=== PATIENT | female | born 1995 | race Hispanic/Latino ===

== ENCOUNTER 2023-09-01 22:17 | Inpatient (IN) | payer BC ==
[~2023-09-01 22:17] MED LIST: Bupivacaine PF 0.5% 30 ML VIAL ONE; ePHEDrine 50 MG/ML VIAL ONE
[2023-09-01] MEDS ORDERED: hydrALAZINE 20 MG/ML VIAL SLOW IVP PRN (22:33)
[2023-09-01] MEDS ORDERED: Ibuprofen 800 MG TAB PO PRN (23:02)
[2023-09-01] MEDS ORDERED: Diphenoxylate HCl/Atropine Tablet PO PRN (23:02)
[2023-09-01] MEDS ORDERED: Promethazine HCl 25 MG/ML VIAL IM PRN (23:02)
[2023-09-01] MEDS ORDERED: Carboprost 250 MCG/ML AMP IM PRN (23:02)
[2023-09-01] MEDS ORDERED: Misoprostol 200 MCG TAB PR PRN (23:02)
[2023-09-01] MEDS ORDERED: Methylergonovine 0.2 MG/ML VIAL IM PRN (23:02)
[2023-09-01] MEDS ORDERED: Ondansetron PF 4 MG/2 ML Vial IVP PRN (23:02)
[2023-09-01] MEDS ORDERED: Tranexamic Acid 1,000 MG/10 ML VIAL IVP PRN (23:02)
[2023-09-01] MEDS ORDERED: fentaNYL 50 mcg/mL 1 mL Vial SLOW IVP PRN (23:02)
[2023-09-01] MEDS ORDERED: Lidocaine 1% (PF) 30 ML VIAL SC PRN (23:02)
[2023-09-01] MEDS ORDERED: Docusate 100 MG CAP PO PRN (23:02)
[2023-09-01] MEDS ORDERED: Butorphanol Tartrate 1 MG/ML VIAL SLOW IVP PRN (23:02)
[2023-09-01] MEDS ORDERED: Acetaminophen 500 MG TAB PO PRN (23:02)
[2023-09-01] MEDS ORDERED: Oxytocin 30 units/NS 500 ML 500 ML IV SCH ×3 (23:15)
[2023-09-01 23:44] LABS: Hematocrit 36.1 % (34.9-44.5); Hemoglobin 12.3 g/dL (12.0-15.5); Mean Corpuscular HGB CONC 34.1 g/dL (32.0-36.0); Mean Corpuscular Hemoglobin 30.4 pg (27.0-33.0); Mean Corpuscular Volume 89.4 fl (81.6-98.3); Platelet Count 279 10x3/uL (150-450); RBC Distribution Width 12.4 % (11.5-14.5); Red Blood Cell (RBC) Count 4.04 10x6/uL (3.90-5.03); White Blood Cell (WBC) Count 9.1 10x3/uL (3.5-10.5)
[2023-09-01 23:58] VITALS: BMI 25.4
[2023-09-02] MEDS: Lactated Ringer's 1,000 ML IV SCH ×3 (00:01→01:36)
[2023-09-02] MEDS ORDERED: fentaNYL/Ropivacaine Epidural 100 ML ONE (00:07)
[2023-09-02 00:18] LABS: HBSAg Index 0.35 S/CO (0-0.99); Hep B Surf Ag - L&D Non-Reactive S/CO (NonReactive)
[2023-09-02 00:19] LABS: Syphilis Antibody Nonreactive (Nonreactive); Syphilis Antibody Index 0.06 S/CO (<1.00 Non-Reactive)
[2023-09-02] MEDS ORDERED: Ondansetron PF 4 MG/2 ML Vial IVP PRN (02:32)
[2023-09-02] MEDS ORDERED: Preparation H Ointment 28 GM TUBE PR PRN (02:32)
[2023-09-02] MEDS ORDERED: Bisacodyl 10 MG SUPP PR PRN (02:32)
[2023-09-02] MEDS ORDERED: Milk Of Magnesia 30 ML UDCUP PO PRN (02:32)
[2023-09-02] MEDS ORDERED: Boostrix 0.5 ML (Tdap) VIAL (>/=7 yrs of age) IM ONE (02:32)
[2023-09-02] MEDS ORDERED: Benzocaine-Menthol 82.5 ML CAN TOP PRN (02:32)
[2023-09-02] MEDS ORDERED: Lanolin Ointment 7 GM TUBE TOP PRN (02:32)
[2023-09-02] MEDS ORDERED: HYDROcodone/Acetaminophen 5/325 mg Tablet PO PRN ×2 (02:32)
[2023-09-02] MEDS ORDERED: diphenhydrAMINE 25 MG CAP PO PRN (02:32)
[2023-09-02] MEDS ORDERED: Misoprostol 200 MCG TAB VAG PRN (02:32)
[2023-09-02] MEDS ORDERED: hydrALAZINE 20 MG/ML VIAL SLOW IVP PRN (02:32)
[2023-09-02] MEDS ORDERED: Oxytocin 30 units/NS 500 ML 500 ML IV SCH (05:30)
[2023-09-02 06:18] LABS: Hematocrit 31.2 % (34.9-44.5); Hemoglobin 10.7 g/dL (12.0-15.5); Mean Corpuscular HGB CONC 34.3 g/dL (32.0-36.0); Mean Corpuscular Hemoglobin 31.2 pg (27.0-33.0); Platelet Count 233 10x3/uL (150-450); RBC Distribution Width 12.6 % (11.5-14.5); Red Blood Cell (RBC) Count 3.43 10x6/uL (3.90-5.03); White Blood Cell (WBC) Count 12.3 10x3/uL (3.5-10.5)
[2023-09-02] MEDS: Ibuprofen 800 MG TAB PO SCH ×3 (06:31→22:00)
[2023-09-02] MEDS: Ferrous Sulfate 325 MG TAB PO SCH ×2 (07:30→16:54)
[2023-09-02] MEDS: Prenatal Vitamin 1 TAB PO SCH (08:48)
[2023-09-02] MEDS: Docusate 100 MG CAP PO SCH ×2 (08:48→22:00)
[2023-09-03] MEDS: Ibuprofen 800 MG TAB PO SCH ×2 (05:40→13:28)
[2023-09-03] MEDS: Ferrous Sulfate 325 MG TAB PO SCH (08:29)
[2023-09-03 08:30] VITALS: BP 109/56; TEMP 97.6
[2023-09-03] MEDS: Prenatal Vitamin 1 TAB PO SCH (08:53)
[2023-09-03] MEDS: Docusate 100 MG CAP PO SCH (08:53)
== END 2023-09-03 16:45 | disposition home or self-care (01) | DRG 807 ==
LOC: CSHLD/OP 22:17 → CSHLD 23:11 → CSHPP 09-02 05:00
PROVIDERS: ADMIT Obstetrics & Gynecology; ATTEND Obstetrics & Gynecology
PROC: 10E0XZZ Delivery of Products of Conception, External Approach (ICD-10-PCS; principal; 2023-09-02)
PROC: 10907ZC Drainage of Amniotic Fluid, Therapeutic from Products of Conception, Via Natural or Artificial Opening (ICD-10-PCS; 2023-09-02)
DX: O36.5930 Maternal care for other known or suspected poor fetal growth, third trimester, not applicable or unspecified (principal); Z37.0 Single live birth; Z3A.38 38 weeks gestation of pregnancy
CPT/HCPCS: 36415; 85027; 86780; 86850; 86900; 86901; 87340; J2590; J7120